=== PATIENT | female | born 1965 | race Caucasian/White ===

== ENCOUNTER 2019-07-30 10:07 | Emergency (ER) | payer OTHER, BC ==
[2019-07-30] MEDS ORDERED: Ondansetron 4 MG/2 ML SDV ONE (10:41)
[2019-07-30] MEDS ORDERED: Ondansetron 4 MG/2 ML SDV IVPUSH ONE (10:52)
[2019-07-30] MEDS ORDERED: HYDROmorphone 1 MG/ML Syringe IVPUSH ONE (11:05)
--- NOTE | 2019-07-30 11:15 | EDM.PDOC ---
ED HPI GENERAL MEDICAL PROBLEM - General Chief Complaint: Head Injury Stated Complaint: HEAD INJURY Time Seen by Provider: 07/30/19 10:56 Source of Information: Reports: Patient, Family History Limitations: Reports: No Limitations - History of Present Illness INITIAL COMMENTS - FREE TEXT/NARRATIVE: The patient presents with a headache and neck pain after a fall. She is confused about what happened. She went to work this morning and she slipped while getting out of her vehicle. She has a severe posterior headache and neck pain. She is unsure of she had an LOC. She has nausea but no vomiting. She has no numbness or weakness. She has no fever, chills, cough, chest pain, shortness of breath, or abdominal pain. She has no arm or leg pain. She is not on any blood thinners. Patient was put in a c-collar when she arrived. I took her C-collar off at 11:25am. Onset: Sudden Duration: Hour(s): (around 5am) Location: Reports: Head, Neck Quality: Reports: Sharp Severity: Severe Improves with: Reports: Immobilization Worsens with: Reports: Movement Context: Reports: Trauma (slipped and fell on the ice) Associated Symptoms: Reports: Headaches, Nausea/Vomiting. Denies: Chest Pain, Cough, Fever/Chills, Shortness of Breath Head Pain Score (Numeric/FACES): 10 - Related Data Allergies Allergy/AdvReac Type Severity Reaction Status Date / Time No Known Allergies Allergy Verified 07/30/19 10:19 Home Meds: Home Meds Ondansetron [Zofran ODT] 4 mg PO Q6H PRN #20 tab.dis 07/30/19 [Rx] ED ROS GENERAL - Review of Systems Review Of Systems: See Below Constitutional: Reports: No Symptoms HEENT: Reports: No Symptoms Respiratory: Reports: No Symptoms Cardiovascular: Reports: No Symptoms Endocrine: Reports: No Symptoms GI/Abdominal: Reports: Nausea. Denies: Abdominal Pain, Vomiting : Reports: No Symptoms Musculoskeletal: Reports: Neck Pain Neurological: Reports: Headache ED EXAM, HEAD INJURY - Physical Exam Exam: See Below Exam Limited By: No Limitations General Appearance: Alert, Mild Distress Head: Other (Pain upon palpation to the occipital region) Eyes: Bilateral Eye: EOMI, PERRL Ears: Normal External Exam Nose: Normal Inspection Neck: Tenderness (Moderate to severe tenderness to the mid cervical spine) Respiratory: No Respiratory Distress, Lungs Clear, Normal Breath Sounds Cardiovascular: Regular Rate, Rhythm, No Edema, No Murmur GI/Abdominal Exam: Soft, Non-Tender, No Organomegaly, No Mass Back Exam: Normal Inspection Extremities: Normal Inspection Neurologic: No Motor/Sensory Deficits, Alert, Normal Mood/Affect, Oriented x 3 Course - Vital Signs Last Recorded V/S: Last Vital Signs Temp 98.5 F 07/30/19 10:19 Pulse 87 07/30/19 10:19 Resp 16 07/30/19 10:19 BP 131/74 07/30/19 10:19 Pulse Ox 100 07/30/19 10:19 - Orders/Labs/Meds Meds: Medications Discontinued Medications Generic Name Dose Route Start Last Admin Trade Name Gerry PRN Reason Stop Dose Admin Hydromorphone HCl 1 mg 07/30/19 11:05 07/30/19 11:10 Dilaudid IVPUSH 07/30/19 11:06 1 mg ONETIME ONE Administration Ondansetron HCl Confirm 07/30/19 10:41 07/30/19 10:59 Zofran Administered 07/30/19 10:42 Not Given Dose 4 mg .ROUTE .STK-MED ONE Ondansetron HCl 4 mg 07/30/19 10:52 07/30/19 10:59 Zofran IVPUSH 07/30/19 10:53 4 mg ONETIME ONE Administration - Re-Assessments/Exams Free Text/Narrative Re-Assessment/Exam: 07/30/19 11:[address] of her head and cervical spine, IV saline lock, zofran and dilaudid. 07/30/19 11:[address] of her head shows nothing acute. The CT of her cervical spine shows nothing acute and she has some degenerative changes in her neck. She feels a little better. I will observe her here for a little while. 07/30/19 12:40 She got up to use the bathroom and she feels better. I will discharge her home. Departure - Departure Time of Disposition: 12:45 Disposition: Home, Self-Care 01 Condition: Good Clinical Impression: Concussion injury of brain Fall Qualifiers: Encounter type: initial encounter Qualified Code(s): W19.XXXA - Unspecified fall, initial encounter - Discharge Information *PRESCRIPTION DRUG MONITORING PROGRAM REVIEWED*: No *COPY OF PRESCRIPTION DRUG MONITORING REPORT IN PATIENT SATHISH: No Prescriptions: Ondansetron [Zofran ODT] 4 mg PO Q6H PRN #20 tab.dis PRN Reason: Nausea\vomiting Referrals: PCP,None [Primary Care Provider] - Carmita Nguyen PA-C [Physician Plastering Supervisor] - 1 Week Forms: ED Department Discharge, ED Return to Work/School Form Additional Instructions: Take tylenol or motrin for any pain. Take the zofran every 6 hours as needed for any nausea or vomiting. Get some rest the next couple of days. It is okay to sleep just have someone check on you every 4 hours. Please return if you are worse such as more nausea, vomiting, headache or if Shefali is not acting right.
--- NOTE | 2019-07-30 11:32 | CT ---
Head CT Technique: Multiple axial sections through the brain were obtained. Intravenous contrast was not utilized. Comparison: No prior intracranial imaging. Findings: Ventricles along with basal cisterns and sulci over the convexities appear within normal limits for the patient's age. No abnormal parenchymal densities are seen. No evidence of intracranial hemorrhage. No midline shift or mass effect is seen. Bone window settings were reviewed which show a retention cyst within the left maxillary sinus. No acute paranasal sinus findings are seen. Mastoid sinuses are clear. No acute calvarial abnormality is appreciated. Impression: 1. Sinus finding believed to be chronic and incidental. 2. No acute intracranial abnormality is seen. No acute calvarial abnormality is identified. Diagnostic code #2 This report was dictated in [place] Standard Time
--- NOTE | 2019-07-30 11:32 | CT ---
CT cervical spine Technique: Multiple axial sections were obtained from above C1 inferiorly to the mid T2 level. Reconstructed sagittal and coronal images were reviewed. Comparison: No prior cervical spine imaging is available. Findings: Mild degenerative change is noted between the dens and the anterior arch of C1. Minimal disc space narrowing noted at C4-C5. Moderate to severe disc space narrowing at C5-C6 with endplate sclerosis and anterior and posterior osteophytes. Other disc spaces are maintained. Vertebral body heights are maintained. Degenerative apophyseal change is seen which is most prominent within the upper right cervical spine. Mild right-sided neural foraminal stenosis is noted at C3-C4. Other neural foramina are patent. No acute fracture or abnormal subluxation is seen. Impression: 1. Degenerative change as described above. 2. Nothing acute is appreciated on CT study of the cervical spine. Diagnostic code #2 This report was dictated in [place] Standard Time
[2019-07-30] MEDS ORDERED: Metoclopramide 10 MG/2 ML SDV IVPUSH ONE (12:42)
== END 2019-07-30 14:07 | disposition home or self-care (01) ==
LOC: JD.ED 10:07
DX: S06.0X0A Concussion without loss of consciousness, initial encounter (principal); W00.0XXA Fall on same level due to ice and snow, initial encounter; Y93.89 Activity, other specified
CPT/HCPCS: 70450; 72125; 96374; 96375; 99285; J1170; J2405; J2765; 99284

== ENCOUNTER 2020-03-13 20:41 | Emergency (ER) | payer BC, OTHER ==
--- NOTE | 2020-03-13 21:15 | EDM.PDOC ---
ED HPI GENERAL MEDICAL PROBLEM - General Chief Complaint: Laceration Stated Complaint: HIT BY SOFTBALL ON FOREHEAD Time Seen by Provider: 03/13/20 20:52 Source of Information: Reports: Patient, RN Notes Reviewed History Limitations: Reports: No Limitations - History of Present Illness INITIAL COMMENTS - FREE TEXT/NARRATIVE: Patient is a 54-year-old female who presents to the ED for an eyebrow laceration. Patient states she was playing softball, when she got struck in the face with a softball on her right lateral eyebrow. This resulted in a roughly 1 cm linear laceration within the eyebrow line itself. There is a little bit of bleeding, but she was able to get it stopped with pressure. Patient is up-to-date on her vaccinations. She is not on any blood thinners, she is denying any blurred vision double vision, headache, or any trauma otherwise no facial pain, she further denies any fever/chills, cough/shortness of breath or any other sick-like symptoms. Forehead Pain Score (Numeric/FACES): 3 - Related Data Allergies Allergy/AdvReac Type Severity Reaction Status Date / Time No Known Allergies Allergy Verified 03/13/20 20:59 Home Meds: Home Meds Galcanezumab-Gnlm [Emgality Syringe] 1 injection INJECT Q30D 03/13/20 [History] Metoclopramide HCl [Reglan] 10 mg PO DAILY PRN 03/13/20 [History] Topiramate [Topamax] 1 tab PO DAILY PRN 03/13/20 [History] Past Medical History Neurological History: Reports: Brain Injury - Past Surgical History Female Surgical History: Reports: Section, Hysterectomy Social & Family History - Tobacco Use Smoking Status *Q: Current Every Day Smoker Years of Tobacco use: 8 Packs/Tins Daily: 0.5 - Recreational Drug Use Recreational Drug Use: No ED ROS GENERAL - Review of Systems Review Of Systems: Comprehensive ROS is negative, except as noted in HPI. ED EXAM, SKIN/RASH Exam: See Below Exam Limited By: No Limitations General Appearance: Alert, WD/WN, No Apparent Distress Eye Exam: Bilateral Eye: EOMI, Normal Inspection, PERRL Ears: Normal External Exam Nose: Normal Inspection Throat/Mouth: Normal Inspection, Normal Lips, Normal Teeth, Normal Gums, Normal Oropharynx, Normal Voice, No Airway Compromise Head: Normocephalic, Other (1 cm linear laceration to R lateral eyebrow) Neck: Normal Inspection Respiratory/Chest: No Respiratory Distress, Lungs Clear, Normal Breath Sounds, No Accessory Muscle Use, Chest Non-Tender Cardiovascular: Normal Peripheral Pulses, Regular Rate, Rhythm, No Murmur Extremities: Normal Inspection, Normal Capillary Refill Neurological: Alert, Oriented, Normal Cognition, No Motor/Sensory Deficits Psychiatric: Normal Affect, Normal Mood Skin: Warm, Dry, Normal Color, No Rash, Wound/Incision (1 cm linear laceration to right lateral eyebrow. No active bleeding.) ED SKIN PROCEDURES - Laceration/Wound Repair Right Lateral Face Appearance: Superficial, Linear, Clean Distal NVT: Neuro & Vascular Intact, No Tendon Injury Skin Prep: Isopropyl Alcohol (Alcohol) Exploration/Debridement/Repair: Wound Explored, In a Bloodless Field, Explored to Base, No Foreign Material Found Closed with: Dermabond Lac/Wound length In cm: 1 Sterile Dressing Applied: Nurse Tetanus Status Addressed: Yes Complications: No Course - Vital Signs Last Recorded V/S: Last Vital Signs Temp 97.4 F 03/13/20 21:03 Pulse 96 03/13/20 21:03 Resp 16 03/13/20 21:03 BP 138/97 H 03/13/20 21:03 Pulse Ox 99 03/13/20 21:03 Departure - Departure Time of Disposition: 21:15 Disposition: Home, Self-Care 01 Condition: Good Clinical Impression: Eyebrow laceration Qualifiers: Encounter type: initial encounter Laterality: right Qualified Code(s): S01.111A - Laceration without foreign body of right eyelid and periocular area, initial encounter - Discharge Information *PRESCRIPTION DRUG MONITORING PROGRAM REVIEWED*: No *COPY OF PRESCRIPTION DRUG MONITORING REPORT IN PATIENT SATHISH: No Instructions: Facial Laceration, Adnd-tr-Nhud Referrals: PCP,None [Primary Care Provider] - Forms: ED Department Discharge Additional Instructions: You have been evaluated in the ED for your laceration. This area was repaired with Dermabond, this is a medical grade skin adhesive, this Dermabond should stay in place for a few days and will wear off as the wound starts healing. Please keep this area clean and dry, you may cleanse with regular soap and water. No vigorous scrubbing. Watch out for signs of infection like increased redness, swelling, pain at the laceration site, or if you should develop any fevers or chills. Do not be surprised if you have a little bit of increased swelling, bruising, or otherwise, over the next few days. You may want to try to ice the area to try to relieve some of the swelling. Please return to ED if your symptoms change or worsen. Sepsis Event Note (ED) - Evaluation Sepsis Screening Result: No Definite Risk - Focused Exam Vital Signs: Vital Signs Temp Pulse Resp BP Pulse Ox 03/13/20 21:03 97.4 F 96 16 138/97 H 99
== END 2020-03-13 21:29 | disposition home or self-care (01) ==
LOC: JD.ED 20:41
DX: S01.111A Laceration without foreign body of right eyelid and periocular area, initial encounter (principal); F17.210 Nicotine dependence, cigarettes, uncomplicated; W21.07XA Struck by softball, initial encounter; Y93.64 Activity, baseball
CPT/HCPCS: 12011; 99282; 99282-25